=== PATIENT | female | born 1940 | race Caucasian/White ===

== ENCOUNTER 2019-04-12 16:57 | Emergency (ER) | payer OTHER ==
[2019-04-12 17:10] VITALS: TEMP 98.7; BMI 27.9
--- NOTE | 2019-04-12 17:14 | PDOC ---
History of Present Illness - General Chief Complaint: Lightheaded Stated Complaint: DIZZY Time Seen by Provider: 04/12/19 17:04 - History of Present Illness Initial Comments: 04/12/19 17:17 78yo female with hx of HTN on losartan-hctz 100-12.5mg with feeling of dizziness. States for the last few days she has taken her BP med and felt lightheaded and dizzy afterwards. States she has been outside in the heat and not drinking as much water as she should. Pt states about an hour after taking her medications she feels lightheaded - near syncope with syncope. Denies bergeron. No neck pain. No cp/sob/palpitations. No abd pain. No n/v/d. No dysuria. No rashes. Pt denies all other complaints. No vertigo sensation. PMHx: HTN PShx: amanda, appy All: nkda smokes an e-cig, quit smoking tobacco cigs 5 years ago, social etoh, no drugs Past History - Past Medical History Allergies/Adverse Reactions: Allergies Allergy/AdvReac Type Severity Reaction Status Date / Time No Known Allergies Allergy Verified 04/12/19 16:59 Home Medications: Ambulatory Orders Losartan/Hydrochlorothiazide [Losartan-Hctz 100-12.5 mg Tab] 1 each PO DAILY 02/24 Asthma: No COPD: No HTN: Yes - Surgical History Appendectomy: Yes Cholecystectomy: Yes - Suicide/Smoking/Psychosocial Hx Smoking Status: Yes Smoking History: Former smoker Years of Tobacco Use: 25 Have you smoked in the past 12 months: No Number of Cigarettes Smoked Daily: 20 If you are a former smoker, when did you quit?: 5 YEARS Information on smoking cessation initiated: No Hx Alcohol Use: Yes (SOCIAL) Drug/Substance Use Hx: No Review of Systems - Review of Systems Able to Perform ROS?: Yes Is the patient limited Palestinian proficient: No Constitutional: Yes: Other (lightheaded). No: Chills, Fever, Malaise, Weakness HEENTM: No: Nose Pain, Throat Pain Respiratory: No: Cough, Shortness of Breath, Wheezing Cardiac (ROS): Yes: Lightheadedness. No: Chest Pain, Irregular Heart Rate, Palpitations, Syncope, Chest Tightness ABD/GI: No: Diarrhea, Nausea, Vomiting, Abdominal cramping : No: Burning, Dysuria Musculoskeletal: No: Back Pain, Neck Pain Integumentary: No: Bruising, Rash Neurological: No: Headache, Numbness, Paresthesia, Tingling, Tremors, Weakness, Ataxia All Other Systems: Reviewed and Negative *Physical Exam - Vital Signs Last Vital Signs Temp Pulse Resp BP Pulse Ox 98.7 F 108 H 18 160/62 96 04/12/19 16:58 04/12/19 16:58 04/12/19 16:58 04/12/19 16:58 04/12/19 16:58 - Physical Exam General Appearance: Yes: Nourished, Appropriately Dressed. No: Apparent Distress HEENT: positive: EOMI, ELIN, Normal ENT Inspection, Normal Voice, Pharynx Normal , Other (dry mm) Neck: positive: Supple. negative: Rigid Respiratory/Chest: positive: Lungs Clear, Normal Breath Sounds. negative: Respiratory Distress Cardiovascular: positive: Regular Rhythm, S1, S2, Tachycardia. negative: Edema Gastrointestinal/Abdominal: positive: Normal Bowel Sounds, Flat, Soft. negative : Guarding, Rebound, Tenderness Musculoskeletal: positive: Normal Inspection. negative: CVA Tenderness Extremity: positive: Normal Capillary Refill, Normal Inspection, Normal Range of Motion. negative: Swelling, Calf Tenderness Integumentary: positive: Normal Color, Dry, Warm Neurologic: positive: air tool operator II-XII NML intact, Fully Oriented, Alert, Normal Mood/ Affect, Motor Strength 5/5, Other (sensation intact, ambulatory with a steady gait) Heart Score/ECG Review - ECG Intrepretation Comment:: 04/12/19 17:33 irreg at 106, pvc, st depressions laterally, with T wave ivnersions I/avl, R axis, abnl ekg ED Treatment Course - LABORATORY CBC & Chemistry Diagram: 04/12/19 17:55 04/12/19 17:55 Medical Decision Making - Medical Decision Making 04/12/19 17:21 a/p: 78yo female with lightheaded/dizzy sensation -concern for dehydration - pt has been outside in the heat and the sun for the last few days, was outside all day yesterday, states drinking water, but not enough and on HCTZ - urinates freq -pt did not take her medication today -pt denies cp/sob -no focal neuro complaints or signs/symptoms on exam -will send labs, will obtain orthostatic vs -will obtain ekg -will give 1L nss - dry mm on exam and mild tenting of skin -will monitor and reassess 04/12/19 17:48 cxr shows well circumscribed massed to R chest, will obtain ct chest and ct head this xray finding was discussed in full detail with the patient who understands need for chest ct and further imaging pt is not orthostatic 04/12/19 18:54 labs reviewed trop negative pt states feeling better and no longer lightheaded after ivf pending ct and repeat ekg 04/12/19 19:14 pt has been signed out to the oncoming ED physician pending repeat ekg and cts pt currently hemodynamically stable *DC/Admit/Observation/Transfer Diagnosis at time of Disposition: Lightheaded, Lung mass - Discharge Dispostion Condition at time of disposition: Stable - Referrals Referrals: Flores Wood MD [Primary Care Provider] - - Patient Instructions - Post Discharge Activity
[2019-04-12] MEDS ORDERED: SODIUM CHLORIDE 0.9% 1000 ML INFUS.BAG IV ONE (17:15)
[2019-04-12 17:36] VITALS: BP 123/59; PULSE 89
[2019-04-12 18:21] LABS: BASO % 0.5 % (0-2.0); EOS % 2.8 % (0-4.5); HEMATOCRIT 34.8 % (32.4-45.2); HEMOGLOBIN 11.4 GM/dl (10.7-15.3); LYMPH % 14.2 % (8-40); MCH 25.6 pg (25.7-33.7); MCHC 32.6 g/dl (32.0-36.0); MEAN CELL VOLUME 78.6 fl (80-96); MEAN PLT VOLUME 7.4 fl (7.5-11.1); MONO % 5.8 % (3.8-10.2); NEUT % 76.7 % (42.8-82.8); PLATELET COUNT 573 K/MM3 (134-434); RBC 4.44 M/mm3 (3.60-5.2); RDW 14.3 % (11.6-15.6); WHITE BLOOD COUNT 10.3 K/mm3 (4.0-10.8)
[2019-04-12 18:22] LABS: ALBUMIN 3.6 g/dl (3.4-5.0); BILIRUBIN,TOTAL 0.6 mg/dl (0.2-1); CALCIUM 9.7 mg/dl (8.5-10); CREATININE 0.9 mg/dl (0.55-1.3); MAGNESIUM 2.1 mg/dL (1.8-2.4); POTASSIUM 3.6 mmol/L (3.5-5.1); TOT PROT 7.6 g/dl (6.4-8.2)
--- NOTE | 2019-04-12 19:42 | PDOC ---
*Physical Exam - Vital Signs Last Vital Signs Temp Pulse Resp BP Pulse Ox 98.7 F 89 18 123/59 L 96 04/12/19 16:58 04/12/19 17:32 04/12/19 16:58 04/12/19 17:32 04/12/19 16:58 ED Treatment Course - LABORATORY CBC & Chemistry Diagram: 04/12/19 17:55 04/12/19 17:55 - ADDITIONAL ORDERS Additional order review: Laboratory Results 04/12/19 04/12/19 04/12/19 17:55 17:55 17:55 Sodium 136 Potassium 3.6 Chloride 99 Carbon Dioxide 27 Anion Gap 10 BUN 17.0 Creatinine 0.9 Est GFR (CKD-EPI)AfAm 71.48 Est GFR (CKD-EPI)NonAf 61.67 Random Glucose 116 H Calcium 9.7 Magnesium 2.1 Total Bilirubin 0.6 AST 13 L ALT 11 L Alkaline Phosphatase 53 Creatine Kinase 34 Troponin I < 0.03 Total Protein 7.6 Albumin 3.6 Urine Color Yellow Urine Appearance Clear Urine pH 7.0 Urine Protein Negative Urine Glucose (UA) Negative Urine Ketones Trace Urine Blood Trace-lysed Urine Nitrite Negative Urine Bilirubin Negative Urine Urobilinogen 0.2 Ur Leukocyte Esterase Trace H 04/12/19 17:55 RBC 4.44 MCV 78.6 L MCHC 32.6 RDW 14.3 MPV 7.4 L Neutrophils % 76.7 Lymphocytes % 14.2 Monocytes % 5.8 Eosinophils % 2.8 Basophils % 0.5 - Medications Given in the ED: ED Medications Discontinued Medications Generic Name Dose Route Start Last Admin Trade Name Freq PRN Reason Stop Dose Admin Sodium Chloride 1,000 ml 04/12/19 17:15 04/12/19 17:55 Normal Saline - IV 04/12/19 17:16 1,000 ml ONCE ONE Administration Progress Note - Progress Note Progress Note: Care of this patient was transferred to or from Dr. Mendez at 1900 hrs. Patient is a 78-year-old female who comes in complaining of dizziness and lightheadedness. During the course of patient's workup a chest x-ray was obtained and what appears to be a large mass on the right side was noted. Concern was for possible metastases to the brain given her lightheadedness and dizziness. Patient is getting a CT of the head and chest to further determine etiology of the probable mass as well as cause of her dizziness and lightheadedness if they are related. Patient's workup was unremarkable. On exception of a large mass visible on chest x-ray. Patient's CAT scan does show a large mass most likely neoplastic with a necrotic area of it and an air-fluid level. Patient's head CT does not show any evidence of metastatic lesions or any acute pathology. Patient's symptoms of dizziness and lightheadedness have resolved post a liter fluid Patient was informed of the results of her CAT scan and discussed with her whether she wanted to be admitted to the hospital to have it worked up here as an inpatient or whether she wanted to go and follow-up with her doctor and have worked up as an outpatient. Patient was quite clear that she did not want to be admitted and wanted to go home and have it worked up as an outpatient. Patient referred back to her primary care doctor and was discharged. Patient given copies of all of her reports and *DC/Admit/Observation/Transfer Diagnosis at time of Disposition: Lightheaded, Lung mass - Discharge Dispostion Disposition: HOME Condition at time of disposition: Stable Decision to Admit order: No - Referrals Referrals: Flores Wood MD [Primary Care Provider] - - Patient Instructions Additional Instructions: It is important that you call your doctor in the morning and get an appointment to follow-up as she will need evaluation and workup and referral for the acid in your right lung. Return to the emergency department immediately with ANY new, persistent or worsening symptoms. Continue any medications as previously prescribed by your physician. You should follow up with your primary doctor as soon as possible regarding today's emergency department visit. . Please make sure your doctor reviews the results of your emergency evaluation. Thank you for coming to the Emergency Department today for your care. It was a pleasure to see you today. Please note that your evaluation is INCOMPLETE until you follow-up with your doctor. - Post Discharge Activity
--- NOTE | 2019-04-14 13:56 | EKG ---
Test Reason : Blood Pressure : / mmHG Vent. Rate : 106 BPM Atrial Rate : 106 BPM P-R Int : 000 ms QRS Dur : 082 ms QT Int : 282 ms P-R-T Axes : 000 189 161 degrees QTc Int : 374 ms SINUS RHYTHM WITH PATs. PVC RIGHT SUPERIOR AXIS DEVIATION NONSPECIFIC ST AND T WAVE ABNORMALITY ABNORMAL ECG Confirmed by MD GIRARD MOYSES ([id number]) on 04/14/2019 1:55:43 PM Referred By: MD BELL Confirmed By:LATASHA GIRARD MD
== END 2019-04-12 20:11 | disposition home or self-care (01) ==
LOC: FER 16:57
PROC: 3E0337Z Introduction of Electrolytic and Water Balance Substance into Peripheral Vein, Percutaneous Approach (ICD-10-PCS; principal; 2019-04-12)
DX: R42 Dizziness and giddiness (principal); R91.8 Other nonspecific abnormal finding of lung field; I10 Essential (primary) hypertension; Z87.891 Personal history of nicotine dependence
CPT/HCPCS: 36415; 70450-TC; 71045-TC-FY; 71250-TC; 80053; 81003; 81015; 82550; 83735; 84484; 85025; 93005; 96360; 99283-25; J7030

== ENCOUNTER 2019-05-17 15:45 | Inpatient (IN) | payer OTHER ==
[2019-05-17] MEDS ORDERED: ASPIRIN 81 MG CHEWABLE TABLETS PO ONE (15:54)
--- NOTE | 2019-05-17 15:54 | PDOC ---
Rapid Medical Evaluation Time Seen by Provider: 05/17/19 15:46 Medical Evaluation: Allergies Allergy/AdvReac Type Severity Reaction Status Date / Time No Known Allergies Allergy Verified 04/12/19 16:59 05/17/19 15:46 I have performed a brief exam on this patient. CC: Chest pain. CALLAHAN. PE: Lungs CTAB. Irregular HR. EKG- a-fib with RVR at rate 138 Orders: cardiac w/u The patient will proceed to the ER for further evaluation. Discharge Disposition - Diagnosis Chest pain - Referrals - Patient Instructions - Post Discharge Activity
[2019-05-17 15:55] VITALS: BMI 26.6
--- NOTE | 2019-05-17 16:39 | PDOC ---
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 Pt admitted to shortness of breath, CALLAHAN. Pt reported her pain is substernal, intermittent, sharp, worse with deep inspiration and exertion, no alleviating factors, non-radiating. Pt reported she followed up with her PCP after being diagnosed with lung mass, and was referred to Dr. Bell. Pt saw Dr. Bell x1 week ago, was advised to set up outpatient biopsy. Pt has not had the opportunity to make an appointment for the biopsy yet. Past History - Past Medical History Allergies/Adverse Reactions: Allergies Allergy/AdvReac Type Severity Reaction Status Date / Time No Known Allergies Allergy Verified 05/17/19 15:55 Home Medications: Ambulatory Orders Losartan Potassium [Cozaar -] 0 mg PO DAILY 05/17/19 HTN: Yes Other medical history: LUNG MASS - Surgical History Appendectomy: Yes Cholecystectomy: Yes - Suicide/Smoking/Psychosocial Hx Smoking Status: Yes Smoking History: Current every day smoker Years of Tobacco Use: 25 Have you smoked in the past 12 months: No Number of Cigarettes Smoked Daily: 20 If you are a former smoker, when did you quit?: 5 YEARS Information on smoking cessation initiated: No Hx Alcohol Use: No Drug/Substance Use Hx: No Review of Systems - Review of Systems Able to Perform ROS?: Yes Constitutional: No: Chills, Fever HEENTM: No: Eye Pain, Throat Pain Respiratory: Yes: Shortness of Breath, SOB with Exertion, SOB at Rest Cardiac (ROS): Yes: Chest Pain, Other (Pleuritic chest pain) ABD/GI: No: Diarrhea, Nausea, Vomiting : No: Burning, Dysuria, Hematuria, Urgency Musculoskeletal: No: Back Pain, Joint Pain, Neck Pain, Joint Stiffness Integumentary: No: Lesions, Rash Neurological: No: Headache, Numbness, Seizure, Weakness, Dizziness *Physical Exam - Vital Signs Last Vital Signs Temp Pulse Resp BP Pulse Ox 97.9 F 99 H 19 122/76 93 L 05/17/19 15:52 05/17/19 15:52 05/17/19 15:52 05/17/19 15:52 05/17/19 15:52 ED Treatment Course - LABORATORY CBC & Chemistry Diagram: 05/19/19 06:40 05/19/19 06:40 Medical Decision Making - Medical Decision Making 05/17/19 16:40 78 year old female with PMH newly diagnosed lung mass presented to ED for chest pain x2 weeks worsening over 2 days associated with shortness of breath, CALLAHAN. Chart review: -CT Head Report 04/12/19: Exam Date: 04/12/19 Status: [place] [address] Unit Number: [id number] EXAM#: TYPE/ EXAM: RESULT: CT/HEAD CT WITHOUT CONTRAST Cranial CT without contrast Clinical information: headache The exam consists of contiguous direct transaxial images. Intravenous contrast was not administered. No prior imaging studies are available at this facility for direct comparison. No intraparenchymal hemorrhage is seen. There is no CT evidence of acute subarachnoid hemorrhage. No extra-axial fluid collection is noted. There is no obvious mass lesion on noncontrast imaging. No discrete infarct is identified within the limitations of CT. Involutional changes are noted with minimal ventricular dilatation. The calvarium appears intact. The partially imaged paranasal sinuses and mastoid air cells demonstrate no opacification. Impression : Negative exam. No discrete noncontrast CT pathology is identified. Reported By : Rm Lopez MD 04/12/19 1933 -CT Chest without Contrast Report 04/12/19: Exam Date: 04/12/19 Status: [place] [address] Unit Number: [id number] EXAM#: TYPE/EXAM: RESULT: CT/CHEST CT WITHOUT CONTRAST Chest CT without contrast Clinical information: chest mass, dizziness, lightheaded multiplanar imaging was performed. Intravenous contrast was not administered. An approximately 6.7 x 6.4 x 5.7 cm nonspecific mass lesion is seen within the right mid lung field which appears to straddle the horizontal fissure with central cavitation consisting of an air- fluid level. The medial border of the lesion abuts the right hilum. Evaluation for hilar lymphadenopathy is limited on noncontrast imaging. An enlarged subcarinal mediastinal lymph node is noted with a 1.5 cm short axis diameter. Several nonspecific mildly prominent pretracheal mediastinal lymph nodes are seen with a 1 cm short axis diameter. No infiltrate or pleural effusion is identified. There is no definite cardiac enlargement. A very small amount of pericardial fluid is seen which is probably physiologic in volume. There is no aortic aneurysm. The trachea and central bronchi demonstrate no obvious abnormality. A small elliptical shape sclerotic focus is seen within a left mid chest rib laterally probably representing an incidental bone island. Impression: An irregular solitary nonspecific cavitating approximately 6.7 x 6.4 x 5.7 cm right mid lung field mass lesion is noted probably on the basis of neoplastic disease. Nonspecific mediastinal lymphadenopathy is noted. Reported By: Rm Lopez MD 04/12/191946 Initial Vital Signs Temp Pulse Resp BP Pulse Ox 97.9 F 99 H 19 122/76 93 L 05/17/19 15:52 05/17/19 15:52 05/17/19 15:52 05/17/19 15:52 05/17/19 15:52 Afebrile. Borderline tachycardia. No tachypnea. No hypotension. Mild hypoxia on room air. Labs ordered: CBC, CMP, cardiac profile, mag Imaging ordered: CXR Medications ordered: ASA 162 mg PO chew once, diltiazem 10 mg IV once EKG performed at 1546: rate 139, irregularly irregular rhythm, left axis, no acute ST changes. New onset atrial fibrillation. Pt is high risk for PE - malignancy with chest pain, shortness of breath, tachycardia and hypoxia I discussed the need for CTA to rule out PE with the patient, she agreed with plan for care. 05/17/19 17:44 Pt reassessed, reported chest heaviness still present. HR [address] 05/17/19 18:25 Pt transported back to ED. 05/17/19 18:53 Vital Signs Temperature 97.9 F 05/17/19 15:52 Pulse Rate 82 05/17/19 18:52 Respiratory Rate 18 05/17/19 18:52 Blood Pressure 113/66 05/17/19 18:52 O2 Sat by Pulse Oximetry (%) 93 L 05/17/19 18:52 Tachycardia improved. No tachypnea. No hypotension. Mild hypoxia on room air. Official CTA report: Exam Date: 05/17/19 Status: [facility] Unit Number: [id number] EXAM#: TYPE/EXAM: RESULT: [id number] CT/CHEST CTA HISTORY PROVIDED: Rule out PE. TECHNIQUE: Sequential axial images were obtained from the thoracic inlet through the domes of the diaphragm following the administration of intravenous contrast material. CTA pulmonary embolism protocol was utilized, including coronal and oblique coronal MIP images. There is adequate opacification of the central pulmonary vasculature with no filling defects suspicious for pulmonary embolism. Evaluation of the lung snowden demonstrates a large right upper lobe mass measuring approximately 8.6 x 6.4 x 7.1 cm. The mass has significantly increased in size since a prior study of 04/12/2019 and is consistent with a malignancy. Right hilar, pretracheal and subcarinal lymphadenopathy is noted. The heart is not enlarged. There is no evidence of thoracic aortic aneurysm or dissection. Evaluation of the upper abdomen demonstrates no acute abnormalities. IMPRESSION: 1. No evidence of pulmonary embolism. 2. Large right upper lobe mass consistent with malignancy and increased in size since 2018. 3. Right hilar and mediastinal lymphadenopathy. Please see above discussion. Reported By: Yousuf Knight MD 05/17/19 5035 Results explained to patient and pt was advised to be admitted for new-onset atrial fibrillation. Pt agreed with plan for care. 05/17/19 19:25 CBC WBC 10.3 K/mm3 (4.0-10.0) H 05/17/19 17:00 RBC 4.61 M/mm3 (3.60-5.2) 05/17/19 17:00 Hgb 11.4 GM/dL (10.7-15.3) 05/17/19 17:00 Hct 35.4 % (32.4-45.2) 05/17/19 17:00 MCV 76.7 fl (80-96) L 05/17/19 17:00 MCH 24.8 pg (25.7-33.7) L 05/17/19 17:00 MCHC 32.4 g/dl (32.0-36.0) 05/17/19 17:00 RDW 15.6 % (11.6-15.6) 05/17/19 17:00 Plt Count 569 K/MM3 (134-434) H 05/17/19 17:00 MPV 7.2 fl (7.5-11.1) L 05/17/19 17:00 Absolute Neuts (auto) 8.0 K/mm3 (1.5-8.0) 05/17/19 17:00 Neutrophils % 77.5 % (42.8-82.8) 05/17/19 17:00 Lymphocytes % 13.5 % (8-40) 05/17/19 17:00 Monocytes % 6.8 % (3.8-10.2) 05/17/19 17:00 Eosinophils % 1.4 % (0-4.5) 05/17/19 17:00 Basophils % 0.8 % (0-2.0) 05/17/19 17:00 Nucleated RBC % 0 % (0-0) 05/17/19 17:00 Leukocytosis without left shift. No anemia. Thrombocytosis. Dr. Nina noriega. Pt to be admitted to [facility] for new onset atrial fibrillation, chest pain, lung mass. 05/17/19 19:34 EKG performed at 1911: rate 83, regular rhythm, PAC, flipped T in V2, flat T in III, otherwise no acute ST changes. 05/17/19 19:57 Dr. Nina noriega again. 05/17/19 20:[address] Wood, she agrees with plan for admission and cardiology consult, she requests Dr. Ames consult be placed to see her in the AM. *DC/Admit/Observation/Transfer Diagnosis at time of Disposition: Chest pain, New onset atrial fibrillation - Discharge Dispostion Condition at time of disposition: Stable Decision to Admit order: Yes - Referrals - Patient Instructions - Post Discharge Activity
[2019-05-17] MEDS ORDERED: ASPIRIN 81 MG CHEWABLE TABLETS ONE ×2 (16:46→16:53)
[2019-05-17] MEDS ORDERED: dilTIAZem HCL 50 MG/10 ML - 10 ML VIAL IVPUSH ONE (17:01)
[2019-05-17 17:19] LABS: BASO % 0.8 % (0-2.0); EOS % 1.4 % (0-4.5); HEMATOCRIT 35.4 % (32.4-45.2); HEMOGLOBIN 11.4 GM/dL (10.7-15.3); LYMPH % 13.5 % (8-40); MCH 24.8 pg (25.7-33.7); MCHC 32.4 g/dl (32.0-36.0); MEAN CELL VOLUME 76.7 fl (80-96); MEAN PLT VOLUME 7.2 fl (7.5-11.1); MONO % 6.8 % (3.8-10.2); NEUT % 77.5 % (42.8-82.8); PLATELET COUNT 569 K/MM3 (134-434); RBC 4.61 M/mm3 (3.60-5.2); RDW 15.6 % (11.6-15.6); WHITE BLOOD COUNT 10.3 K/mm3 (4.0-10.0)
[2019-05-17] MEDS ORDERED: dilTIAZem HCL 125 MG/25 ML - 25 ML VIAL ONE ×2 (17:27)
[2019-05-17 17:41] LABS: ALBUMIN 3.1 g/dl (3.4-5.0); ALK PHOS 58 U/L (45-117); ANION GAP 11 MMOL/L (8-16); BILIRUBIN,TOTAL 0.4 mg/dL (0.2-1); BLOOD UREA NITROGEN 11.8 mg/dL (7-18); CALCIUM 9.7 mg/dL (8.5-10.1); CHLORIDE 104 mmol/L (98-107); CO2 23 mmol/L (21-32); CREATININE 0.8 mg/dL (0.55-1.3); GLUCOSE,RANDOM 134 mg/dL (74-106); POTASSIUM 3.9 mmol/L (3.5-5.1); SGOT/AST 11 U/L (15-37); SGPT/ALT 15 U/L (13-61); SODIUM 138 mmol/L (136-145); TOT PROT 7.3 g/dl (6.4-8.2)
[2019-05-17 17:45] LABS: INR 1.28 (0.83-1.09); PROTHROMBIN TIME (PATIENT) 15.1 SEC (9.7-13.0)
--- NOTE | 2019-05-17 18:40 | PDOC ---
Documentation entered by Keara Christine SCRIBE, acting as scribe for Genna Trujillo MD. Genna Trujillo MD: This documentation has been prepared by the Emmett sotomayor Mackenzie, SCRIBE, under my direction and personally reviewed by me in its entirety. I confirm that the documentation accurately reflects all work , treatment, procedures, and medical decision making performed by me. Attending Attestation - Resident Resident Name: Amber Mariano - ED Attending Attestation I have performed the following: I have examined & evaluated the patient, The case was reviewed & discussed with the resident, I agree w/resident's findings & plan - HPI HPI: The patient is a 78 year old female, with a significant PMH of HTN and a recently diagnosed right lung mass (diagnosed 04/12/19, biopsy has not been done yet) who presents to the emergency department with new onset Afib, chest pain, and shortness of breath. Patient states her symptoms have persisted over the past 2 weeks and for the past two days her symptoms have worsened prompting her to come in to the ED today. The patient denies headache and dizziness. Denies fever, chills, nausea, vomiting, diarrhea and constipation. Denies dysuria, frequency, urgency and hematuria. Allergies: NKDA Past surgical history: filippo santoyo Social history: Quit smoking cigarettes 5 years ago, now uses an e-cigarette PCP: Dr. Diaz 05/17/19 17:40 - Physicial Exam PE: GENERAL: The patient is in no acute distress. ENT: Ears normal, nares patent, oropharynx clear without exudates. Moist mucous membranes. NECK: Normal range of motion, supple LUNGS: Breath sounds equal, clear to auscultation bilaterally. No wheezes, and no crackles. HEART: Irregularly irregular, no murmurs ABDOMEN: Soft, nontender, normoactive bowel sounds. EXTREMITIES: Normal range of motion, no edema. NEUROLOGICAL: Cranial nerves II through XII grossly intact. Normal speech. No focal neurological deficits. SKIN: Warm, Dry, normal turgor, no rashes or lesions noted. 05/17/19 17:40 05/17/19 18:40 - Critical Care Time Total Critical Care Time: 35 Critical Care Statement: The care of this patient involved high complexity decision making to prevent further life threatening deterioration of the patient 's condition and/or to evaluate & treat vital organ system(s) failure or risk of failure. - Medical Decision Making 05/17/19 18:35 Ms. yao is a 78 yo F who presents to the ER with a complaint of chest pain which has been present for the past 2 weeks, worsening over the past 2 days. Recently diagnosed with a right midlung mass 6 x 6 x 4 (pending further work up) (+) SOB, (+) CALLAHAN, Pain is pleuritic, intermittent, sharp, no alleviating factors DD: PE, effect of lung mass, pleural effusion Will do: Labs CTA Re Assess Laboratory Tests 05/17/19 05/17/19 17:00 17:00 INR 1.28 H BUN 11.8 Creatinine 0.8 Creatine Kinase 29 Troponin I < 0.02 05/17/19 18:36 05/17/19 18:38 05/17/19 19:19 CTA: no pe, right middle lobe mass has increased in size Awaiting CBC Will admit 05/17/19 19:37 Repeat EKG: NSR rate of 83 bpm, axis nml, intervals nml, no st elevation, t wave inversion v2 05/17/19 19:38 Laboratory Tests 05/17/19 05/17/19 17:00 17:00 WBC 10.3 H Hgb 11.4 Hct 35.4 Plt Count 569 H INR 1.28 H in light of increased size of mass and pt chest pain, will admit HR improved after Cardizem (then pt converted to SR) Will need cards consultation Clinical impression: chest pain, initial presentation lung mass, repeat presentation 05/18/19 19:07
[2019-05-17] MEDS ORDERED: ACETAMINOPHEN 325 MG TABLET (FP) PO PRN (20:57)
[2019-05-17] MEDS ORDERED: APIXABAN 5 MG TABLET PO ONE (21:43)
[2019-05-17] MEDS ORDERED: ATORVASTATIN CA 40 MG TABLET (FP) ONE (21:43)
[2019-05-17] MEDS: APIXABAN 5 MG TABLET PO SCH (22:06)
[2019-05-17] MEDS: ATORVASTATIN CA 40 MG TABLET (FP) PO SCH (22:06)
[2019-05-18 07:05] LABS: ALBUMIN 2.9 g/dl (3.4-5.0); ALK PHOS 51 U/L (45-117); ANION GAP 7 MMOL/L (8-16); BILIRUBIN,TOTAL 0.4 mg/dL (0.2-1); BLOOD UREA NITROGEN 11.4 mg/dL (7-18); CALCIUM 9.4 mg/dL (8.5-10.1); CHLORIDE 106 mmol/L (98-107); CHOLESTEROL 170 mg/dL (50-200); CO2 26 mmol/L (21-32); CREATININE 0.7 mg/dL (0.55-1.3); GLUCOSE,RANDOM 94 mg/dL (74-106); HDL CHOLESTEROL 37 mg/dL (40-60); MAGNESIUM 2.3 mg/dL (1.8-2.4); PHOSPHOROUS 3.4 mg/dL (2.5-4.9); POTASSIUM 4.3 mmol/L (3.5-5.1); SGOT/AST 12 U/L (15-37); SGPT/ALT 14 U/L (13-61); SODIUM 139 mmol/L (136-145); TOT PROT 6.8 g/dl (6.4-8.2); TRIGLYCERIDES 78 mg/dL (0-150)
[2019-05-18 07:15] LABS: BASO % 0.6 % (0-2.0); EOS % 3.2 % (0-4.5); HEMATOCRIT 30.8 % (32.4-45.2); HEMOGLOBIN 10.3 GM/dL (10.7-15.3); LYMPH % 15.2 % (8-40); MCH 25.3 pg (25.7-33.7); MCHC 33.3 g/dl (32.0-36.0); MEAN CELL VOLUME 75.9 fl (80-96); MONO % 7.7 % (3.8-10.2); NEUT % 73.3 % (42.8-82.8); PLATELET COUNT 522 K/MM3 (134-434); RBC 4.06 M/mm3 (3.60-5.2); RDW 15.9 % (11.6-15.6); WHITE BLOOD COUNT 8.7 K/mm3 (4.0-10.0)
--- NOTE | 2019-05-18 08:35 | CON.CARD ---
Consult Consult Specialty:: Cardiology Referred by:: Dr. Wood Reason for Consultation:: AF - History of Present Illness Chief Complaint: Dizziness History of Present Illness: 78F Former smoker w/ HTN and newly diagnosed RUL mass presents to ER w/ one week of dizziness and presyncope sensations, feeling of chest heaviness. CTA negative for PE, RUL mass increasing in size. Also in new onset AF. She denies prior hx AK, cor revasc No prior AF. Denies palpitations. Chronic CALLAHAN. No syncope. No edema, no PND/ orthopnea. AF initially RVR, improved w/ Cardizem 10mg IV x1. 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, CVA, Dementia, Migraine, Multiple Sclerosis, Peripheral Neuropathy, Parkinson's, Seizure, Syncope, TIA, Vertigo, Other Cardio/Vascular: Yes: HTN Pulmonary: Yes: COPD Gastrointestinal: No: Ascites, Cancer, Constipation, Crohn's Disease, Diverticulitis, Diverticulosis, Esophageal Varices, Gastritis, GERD, GI Bleed, Hemorrhoids, Hiatal Hernia, Inflamatory Bowel Disease, Irritable Bowel Disease, Pancreatitis, Peptic Ulcer Disease, Ulcerative Colitis, Other Hepatobiliary: No: Cirrhosis, Cholelithiasis, Cholecystitis, Choledocholithiasis , Hepatitis A, Hepatitis B, Hepatitis C, Other Renal/: No: Renal Failure, Renal Inusuff, BPH, Cancer, Hematuria, Hemodialysis , Neurogenic Bladder, Renal Calculi, UTI, Other Reproductive: No: Ectopic , Endometriosis, Fibroids, PID, Polycystic Ovary Syndrome, Postmenopausal, Other Heme/Onc: Yes: Other (RUL MASS) Infectious Disease: No: AIDS, C-Diff, Herpes Zoster, HIV, MRSA, STD's, Tuberculosis, VREF, Other Psych: No: Addictions, Anxiety, Bipolar, Depression, Panic, Psychosis, Schizophrenia, Other Musculoskeletal: No: Bursitis, Chronic low back pain, Hemiparesis, Hemiplegia, Osteoarthritis, Paraplegia, Other Rheumatology: No: Fibromyalgia, Gout, Lupus, Rheumatoid Arthritis, Sarcoidosis, Vasculitis, Other ENT: No: Allergic Rhinitis, Sinusitis, Other Endocrine: No: Jennings's Disease, [place]ub[place]'s Disease, Diabetes Insipidus, Diabetes Mellitus, Hyperparathyroidism, Hyperthyroidism, Hypothyroidism, Osteopenia, SIADH, Other - Past Surgical History Past Surgical History: Yes: Cholecystectomy - Alcohol/Substance Use Hx Alcohol Use: No - Smoking History Smoking history: Current every day smoker Have you smoked in the past 12 months: No Aproximately how many cigarettes per day: 20 If you are a former smoker, when did you quit?: 5 YEARS - Social History Usual Living Arrangement: With Child History of Recent Travel: No Home Medications - Allergies Allergies/Adverse Reactions: Allergies Allergy/AdvReac Type Severity Reaction Status Date / Time No Known Allergies Allergy Verified 05/17/19 15:55 - Home Medications Home Medications: Ambulatory Orders Losartan Potassium [Cozaar -] 0 mg PO DAILY 05/17/19 Family Disease History - Family Disease History Family History: Unremarkable (No early CAD) Review of Systems - Review of Systems Constitutional: reports: No Symptoms Eyes: reports: No Symptoms HENT: reports: No Symptoms Neck: reports: No Symptoms Cardiovascular: reports: Chest Pain, Other (near syncope and dizziness) Respiratory: reports: SOB on Exertion Gastrointestinal: reports: No Symptoms Genitourinary: reports: No Symptoms Breasts: reports: No Symptoms Reported Musculoskeletal: reports: No Symptoms Integumentary: reports: No Symptoms Neurological: reports: No Symptoms Endocrine: reports: No Symptoms Hematology/Lymphatic: reports: No Symptoms Psychiatric: reports: No Symptoms - Risk Factors Known Risk Factors: Yes: Hypertension, Smoking Vital Signs: Vital Signs Temperature 98.3 F 05/18/19 07:20 Pulse Rate 75 05/18/19 07:20 Respiratory Rate 20 05/18/19 07:20 Blood Pressure 114/79 05/18/19 07:20 O2 Sat by Pulse Oximetry (%) 95 05/18/19 07:20 Constitutional: Yes: No Distress, Calm Eyes: Yes: Conjunctiva Clear, EOM Intact HENT: Yes: Atraumatic, Normocephalic Neck: Yes: Trachea Midline Respiratory: Yes: Other (decreased breath sounds b/l, no rales or active wheezing) Gastrointestinal: Yes: WNL Renal/: Yes: WNL Cardiovascular: Yes: WNL JVD: No Carotid Bruit: No PMI: Non-Displaced Heart Sounds: Yes: S1, S2 (irreg, irreg) Murmur: No: Systolic Murmur, Diastolic Murmur, Grade 1, Grade 2, Grade 3, Grade 4, Grade 5, Grade 6 Musculoskeletal: No: WNL, Back Pain, Joint Stiffness, Joint Swelling, Muscle Pain, Muscle Weakness, Other Extremities: No: WNL, Amputation, Calf Tenderness, Cold, Cool, Cyanosis, Deformity, Delayed Capillary Refill, Erythema, External Rotation, Internal Rotation, Pallor, Shortened, Other Edema: No Peripheral Pulses WNL: Yes Integumentary: Yes: WNL Neurological: Yes: WNL ...Motor Strength: WNL - Other Data Labs, Other Data: CBC, BMP 05/18/19 06:18 05/18/19 06:18 INR, PTT INR 1.28 (0.83-1.09) H 05/17/19 17:00 Troponin, BNP 05/17/19 05/17/19 05/18/19 17:00 17:35 06:18 Troponin I < 0.02 < 0.02 < 0.02 Troponin, BNP 05/17/19 05/17/19 05/18/19 17:00 17:35 06:18 Troponin I < 0.02 < 0.02 < 0.02 Laboratory Tests 05/17/19 05/17/19 05/17/19 17:00 17:00 17:35 WBC Hgb Plt Count INR 1.28 H Sodium Potassium BUN Creatinine Magnesium AST ALT Alkaline Phosphatase Creatine Kinase Troponin I < 0.02 < 0.02 05/18/19 05/18/19 06:18 06:18 WBC 8.7 Hgb 10.3 L Plt Count 522 H INR Sodium 139 Potassium 4.3 BUN 11.4 Creatinine 0.7 Magnesium 2.3 AST 12 L ALT 14 Alkaline Phosphatase 51 Creatine Kinase 26 Troponin I < 0.02 AF, NSST Echo: Pending Imaging - Results Chest X-ray: Image Reviewed Cat Scan: Image Reviewed (LArge RUL mass, increased in size from prior/ no PE) EKG: Image Reviewed Assessment/Plan IMP: 1. New onset AF w/ RVR now controlled. 2. Chronic HTN 3. Suspected COPD 4. RUL Mass, likely malignant 5. Dizziness, chest pain likely all secondary to AF w/ RVR: CTA negative for PE REC: 1. Tele 2. Start Cardizem CD, responded well to Cardizem and probably better choice (vs beta blockers given her COPD) 3. Echo for EF assessment; Check TSH; consider ischemic work up in light of several risk factors. 4. [id number] score= 4, merits AC. Started on Eliquis. 5. Further plans re work up of lung mass as per PMD and Pulmonary.
[2019-05-18] MEDS ORDERED: LOSARTAN POTASSIUM 50 MG TABLET (FP) PO SCH (10:00)
[2019-05-18] MEDS ORDERED: dilTIAZem HCL 60 MG TABLET (FP) ONE (11:11)
[2019-05-18] MEDS ORDERED: APIXABAN 5 MG TABLET PO ONE (11:11)
[2019-05-18] MEDS ORDERED: ASPIRIN COATED 81 MG TABLET.EC ONE (11:11)
[2019-05-18] MEDS ORDERED: LOSARTAN POTASSIUM 50 MG TABLET (FP) ONE (11:12)
[2019-05-18] MEDS: ASPIRIN COATED 81 MG TABLET.EC PO SCH (11:22)
[2019-05-18] MEDS: LOSARTAN POTASSIUM 25 MG TABLET PO SCH (11:22)
[2019-05-18] MEDS: POLYETHYLENE GLYCOL 3350 119 GM BTL PO SCH (11:22)
[2019-05-18] MEDS: APIXABAN 5 MG TABLET PO SCH ×2 (11:22→22:50)
--- NOTE | 2019-05-18 12:45 | CON.PULM ---
Consult Consult Specialty:: PULMONARY Referred by:: Dr Wood Reason for Consultation:: lung mass - History of Present Illness Chief Complaint: chest heaviness History of Present Illness: 78yo female with h/o HTN, former long time smoker who was admitted with chest heaviness. Found to be in new onset atrial fibrillation. States she was told of a lung mass in April and was being worked up as an outpt. She denies any cough, hemoptysis or shortness of breath. No fevers, chills or sweats. No unintentional weight loss. She quit smoking 5 years ago, started around age 21, smoked on average 2 PPD. Had 2 sisters from lung cancer. - History Source History Provided By: Patient, Medical Record Limitations to Obtaining History: No Limitations - Past Medical History Cardio/Vascular: Yes: HTN Pulmonary: Yes: COPD - Past Surgical History Past Surgical History: Yes: Cholecystectomy - Alcohol/Substance Use Hx Alcohol Use: No - Smoking History Smoking history: Current every day smoker Have you smoked in the past 12 months: No Aproximately how many cigarettes per day: 20 If you are a former smoker, when did you quit?: 5 YEARS - Social History Usual Living Arrangement: With Child History of Recent Travel: No Home Medications - Allergies Allergies/Adverse Reactions: Allergies Allergy/AdvReac Type Severity Reaction Status Date / Time No Known Allergies Allergy Verified 05/17/19 15:55 - Home Medications Home Medications: Ambulatory Orders Losartan Potassium [Cozaar -] 0 mg PO DAILY 05/17/19 Review of Systems - Review of Systems Constitutional: reports: Weakness. denies: Chills, Fever Eyes: denies: Recent Change in Vision HENT: denies: Nasal Congestion, Throat Pain Neck: denies: Stiffness, Tenderness Cardiovascular: reports: Chest Pain. denies: Edema, Shortness of Breath Respiratory: denies: Cough, Hemoptysis, Wheezing Gastrointestinal: denies: Abdominal Pain, Nausea, Vomiting Genitourinary: denies: Dysuria, Hematuria Neurological: denies: Dizziness, Headache Endocrine: denies: Unexplained Weight Loss Physical Exam Vital Sings: Vital Signs Temperature 98.3 F 05/18/19 07:20 Pulse Rate 75 05/18/19 07:20 Respiratory Rate 20 05/18/19 07:20 Blood Pressure 114/79 05/18/19 07:20 O2 Sat by Pulse Oximetry (%) 95 05/18/19 07:20 Constitutional: Yes: Calm Eyes: Yes: Conjunctiva Clear, EOM Intact HENT: Yes: Atraumatic, Normocephalic Neck: Yes: Supple, Trachea Midline Cardiovascular: Yes: Regular Rate and Rhythm Respiratory: Yes: Diminished (decreased breath sounds at the bases) ...Clubbing: No Gastrointestinal: Yes: Normal Bowel Sounds, Soft. No: Tenderness Edema: No Neurological: Yes: Alert, Oriented Labs: CBC, BMP 05/18/19 06:18 05/18/19 06:18 Imaging - Results Chest X-ray: Report Reviewed, Image Reviewed (RUL mass) Problem List - Problems (1) New onset atrial fibrillation Code(s): I48.91 - UNSPECIFIED ATRIAL FIBRILLATION (2) Lung mass Code(s): R91.8 - OTHER NONSPECIFIC ABNORMAL FINDING OF LUNG FIELD Assessment/Plan New Onset Atrial Fibrillation RUL Mass likely malignant HTN - rate control - on anticoagulation - will need biopsy via IR vs bronchoscopy but will need to be off ASA and anticoagulation - outpt PET, PFTs Thank you for this consult Pop Kent MD
--- NOTE | 2019-05-18 14:57 | HP ---
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 No: AFIB Pulmonary: Yes: COPD, Other (known to have lung mass) Gastrointestinal: No: Ascites, Cancer, Constipation, Crohn's Disease, Diverticulitis, Diverticulosis, Esophageal Varices, Gastritis, GERD, GI Bleed, Hemorrhoids, Hiatal Hernia, Inflamatory Bowel Disease, Irritable Bowel Disease, Pancreatitis, Peptic Ulcer Disease, Ulcerative Colitis, Other Hepatobiliary: No: Cirrhosis, Cholelithiasis, Cholecystitis, Choledocholithiasis , Hepatitis A, Hepatitis B, Hepatitis C, Other Renal/: No: Renal Failure, Renal Inusuff, BPH, Cancer, Hematuria, Hemodialysis , Neurogenic Bladder, Renal Calculi, UTI, Other Heme/Onc: Yes: Other (RUL MASS) Infectious Disease: No: AIDS, C-Diff, Herpes Zoster, HIV, MRSA, STD's, Tuberculosis, VREF, Other Psych: No: Addictions, Anxiety, Bipolar, Depression, Panic, Psychosis, Schizophrenia, Other Musculoskeletal: No: Bursitis, Chronic low back pain, Hemiparesis, Hemiplegia, Osteoarthritis, Paraplegia, Other Rheumatology: No: Fibromyalgia, Gout, Lupus, Rheumatoid Arthritis, Sarcoidosis, Vasculitis, Other ENT: No: Allergic Rhinitis, Sinusitis, Other Endocrine: No: [place]'s Disease, Florence's Disease, Diabetes Insipidus, Diabetes Mellitus, Hyperparathyroidism, Hyperthyroidism, Hypothyroidism, Osteopenia, SIADH, Other - Past Surgical History Past Surgical History: Yes: Cholecystectomy - Smoking History Smoking history: Former smoker Have you smoked in the past 12 months: No Aproximately how many cigarettes per day: 20 If you are a former smoker, when did you quit?: 5 YEARS - Alcohol/Substance Use Hx Alcohol Use: No - Social History Usual Living Arrangement: Yes: Alone ADL: Independent History of Recent Travel: No Home Medications - Allergies Allergies/Adverse Reactions: Allergies Allergy/AdvReac Type Severity Reaction Status Date / Time No Known Allergies Allergy Verified 05/17/19 15:55 - Home Medications Home Medications: Ambulatory Orders Losartan Potassium [Cozaar -] 0 mg PO DAILY 05/17/19 Review of Systems - Review of Systems Constitutional: reports: Weakness Eyes: reports: No Symptoms HENT: reports: No Symptoms Neck: reports: No Symptoms Cardiovascular: reports: Chest Pain, Palpitations, Shortness of Breath Respiratory: reports: Cough, SOB, SOB on Exertion Gastrointestinal: reports: No Symptoms Genitourinary: reports: No Symptoms Breasts: reports: No Symptoms Reported Musculoskeletal: reports: No Symptoms Integumentary: reports: No Symptoms Neurological: reports: Dizziness, Weakness, Other (dizzines and weakness occur randomly and subside without treatment was seen at [facility] ED last month for similar events - all work up at that time was negative -- and was released home) Endocrine: reports: No Symptoms Hematology/Lymphatic: reports: No Symptoms Psychiatric: reports: No Symptoms Physical Examination Vital Signs: Vital Signs Temperature 98.3 F 05/18/19 07:20 Pulse Rate 75 05/18/19 07:20 Respiratory Rate 20 05/18/19 07:20 Blood Pressure 114/79 05/18/19 07:20 O2 Sat by Pulse Oximetry (%) 95 05/18/19 07:20 Constitutional: Yes: Well Nourished, No Distress, Calm Eyes: Yes: WNL HENT: Yes: WNL, Atraumatic, Normocephalic Neck: Yes: WNL, Supple, Trachea Midline Cardiovascular: Yes: Pulse Irregular (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 No: Rales, Rhonchi, Wheezes Gastrointestinal: Yes: WNL, Normal Bowel Sounds ...Rectal Exam: Yes: Deferred Renal/: Yes: WNL Breast(s): Yes: WNL Musculoskeletal: Yes: WNL Extremities: Yes: WNL Edema: No Peripheral Pulses WNL: Yes Integumentary: Yes: WNL Neurological: Yes: WNL ...Motor Strength: WNL Psychiatric: Yes: Alert, Oriented Labs: CBC, BMP 05/18/19 06:18 05/18/19 06:18 Problem List - Problems (1) COPD (chronic obstructive pulmonary disease) Code(s): J44.9 - CHRONIC OBSTRUCTIVE PULMONARY DISEASE, UNSPECIFIED (2) Chest pain Code(s): R07.9 - CHEST PAIN, UNSPECIFIED (3) New onset atrial fibrillation Code(s): I48.91 - UNSPECIFIED ATRIAL FIBRILLATION (4) Lightheaded Code(s): R42 - DIZZINESS AND GIDDINESS (5) Lung mass Code(s): R91.8 - OTHER NONSPECIFIC ABNORMAL FINDING OF LUNG FIELD
--- NOTE | 2019-05-18 15:17 | EKG ---
Test Reason : Blood Pressure : / mmHG Vent. Rate : 074 BPM Atrial Rate : 061 BPM P-R Int : 128 ms QRS Dur : 084 ms QT Int : 360 ms P-R-T Axes : 000 -02 026 degrees QTc Int : 399 ms SINUS RHYTHM WITH PREMATURE ATRIAL COMPLEXES OTHERWISE NORMAL ECG WHEN COMPARED WITH ECG OF 17-MAY-2019 22:00, NO SIGNIFICANT CHANGE WAS FOUND Confirmed by MD Juan F, Liam ([id number]) on 05/18/2019 3:16:47 PM Referred By: Prabhakar DAWN Confirmed By:Liam Rogel MD
--- NOTE | 2019-05-18 15:18 | EKG ---
Test Reason : Blood Pressure : / mmHG Vent. Rate : 079 BPM Atrial Rate : 079 BPM P-R Int : 118 ms QRS Dur : 078 ms QT Int : 338 ms P-R-T Axes : 030 -10 018 degrees QTc Int : 387 ms SINUS RHYTHM WITH PREMATURE ATRIAL COMPLEXES NONSPECIFIC ST ABNORMALITY ABNORMAL ECG WHEN COMPARED WITH ECG OF 17-MAY-2019 19:11, NO SIGNIFICANT CHANGE WAS FOUND Confirmed by MD Juan F, Liam ([id number]) on 05/18/2019 3:18:17 PM Referred By: Confirmed By:Liam Rogel MD
--- NOTE | 2019-05-18 15:19 | EKG ---
Test Reason : Blood Pressure : / mmHG Vent. Rate : 139 BPM Atrial Rate : 166 BPM P-R Int : 000 ms QRS Dur : 072 ms QT Int : 288 ms P-R-T Axes : 000 000 -52 degrees QTc Int : 438 ms ATRIAL FIBRILLATION WITH RAPID VENTRICULAR RESPONSE LOW VOLTAGE QRS NONSPECIFIC ST ABNORMALITY ABNORMAL ECG WHEN COMPARED WITH ECG OF 12-APR-2019 17:23, PREVIOUS ECG HAS UNDETERMINED RHYTHM, NEEDS REVIEW QRS AXIS SHIFTED RIGHT ST MORE DEPRESSED LATERAL LEADS T WAVE INVERSION NO LONGER EVIDENT IN LATERAL LEADS Confirmed by MD Juan F, Liam ([id number]) on 05/18/2019 3:19:33 PM Referred By: Confirmed By:Liam Rogel MD
[2019-05-18] MEDS: ATORVASTATIN CA 40 MG TABLET (FP) PO SCH (22:50)
[2019-05-18] MEDS ORDERED: LORazepam 0.5 MG TABLET PO PRN (23:15)
[2019-05-19 08:13] LABS: BASO % 0.5 % (0-2.0); EOS % 3.9 % (0-4.5); HEMATOCRIT 30.8 % (32.4-45.2); HEMOGLOBIN 10.1 GM/dL (10.7-15.3); LYMPH % 15.2 % (8-40); MCH 24.9 pg (25.7-33.7); MCHC 32.9 g/dl (32.0-36.0); MEAN CELL VOLUME 75.7 fl (80-96); MONO % 7.1 % (3.8-10.2); NEUT % 73.3 % (42.8-82.8); PLATELET COUNT 552 K/MM3 (134-434); RBC 4.07 M/mm3 (3.60-5.2); WHITE BLOOD COUNT 7.6 K/mm3 (4.0-10.0)
[2019-05-19 08:36] LABS: BLOOD UREA NITROGEN 14.1 mg/dL (7-18); CALCIUM 9.3 mg/dL (8.5-10.1); CREATININE 0.7 mg/dL (0.55-1.3); POTASSIUM 4.4 mmol/L (3.5-5.1)
[2019-05-19] MEDS: APIXABAN 5 MG TABLET PO SCH ×2 (09:48→21:40)
[2019-05-19] MEDS: ASPIRIN COATED 81 MG TABLET.EC PO SCH (09:48)
[2019-05-19] MEDS: LOSARTAN POTASSIUM 25 MG TABLET PO SCH (09:48)
[2019-05-19] MEDS: POLYETHYLENE GLYCOL 3350 119 GM BTL PO SCH (09:50)
--- NOTE | 2019-05-19 09:53 | PN ---
Progress Note, Physician Chief Complaint: no CP or SOB TELE: NSR today BP also lowish History of Present Illness: new onset AF - Current Medication List Current Medications: Active Medications Acetaminophen (Tylenol -) 650 mg PO Q6H PRN PRN Reason: PAIN LEVEL 1-5 Apixaban (Eliquis -) 5 mg PO BID [facility] Last Admin: 05/19/19 09:48 Dose: 5 mg Aspirin (Ecotrin -) 81 mg PO DAILY [facility] Last Admin: 05/19/19 09:48 Dose: 81 mg Atorvastatin Calcium (Lipitor -) 40 mg PO HS [facility] Last Admin: 05/18/19 22:50 Dose: 40 mg Diltiazem HCl (Cardizem Cd -) 120 mg PO DAILY [facility] Last Admin: 05/19/19 09:48 Dose: 120 mg Lorazepam (Ativan -) 0.5 mg PO HS PRN PRN Reason: INSOMNIA Losartan Potassium (Cozaar -) 25 mg PO DAILY [facility] Last Admin: 05/19/19 09:48 Dose: 25 mg Polyethylene Glycol (Miralax (For Daily Use) -) 17 gm PO DAILY [facility] Last Admin: 05/19/19 09:50 Dose: 17 gm - Objective Vital Signs: Vital Signs Temperature 98.2 F 05/19/19 06:00 Pulse Rate 83 05/19/19 06:00 Respiratory Rate 16 05/19/19 06:00 Blood Pressure 106/54 L 05/19/19 06:00 O2 Sat by Pulse Oximetry (%) 96 05/18/19 22:00 Constitutional: Yes: No Distress Eyes: Yes: Conjunctiva Clear Cardiovascular: Yes: Pulse Irregular Respiratory: Yes: CTA Bilaterally Gastrointestinal: Yes: Soft Edema: No Peripheral Pulses WNL: Yes Neurological: Yes: Alert, Oriented ...Motor Strength: WNL Labs: CBC, BMP 05/19/19 06:40 05/19/19 06:40 INR, PTT INR 1.28 (0.83-1.09) H 05/17/19 17:00 Laboratory Tests 05/17/19 05/17/19 05/18/19 17:00 17:35 06:18 WBC Hgb Plt Count Sodium Potassium Creatinine Troponin I < 0.02 < 0.02 < 0.02 05/19/19 05/19/19 06:40 06:40 WBC 7.6 Hgb 10.1 L Plt Count 552 H Sodium 138 Potassium 4.4 Creatinine 0.7 Troponin I - ....Imaging EKG: Other (NSR w/ frequent APCs) Assessment/Plan TSH nl Assessment/Plan IMP: 1. New onset AF w/ RVR now converted to NSR 2. Chronic HTN 3. Suspected COPD 4. RUL Mass, likely malignant 5. Dizziness, chest pain likely all secondary to AF w/ RVR: CTA negative for PE REC: 1. Tele 2. Continue Cardizem, worked well for rate control and now has converted to NSR. Will decrease Losartan as BP is running low-normal. 3. Echo for EF assessment; Stress MPI in AM 4. [id number] score= 4, merits AC. Continue Eliquis. 5. Further plans re work up of lung mass as per PMD and Pulmonary.
--- NOTE | 2019-05-19 10:26 | PN ---
Progress Note (short form) - Note Progress Note: PULMONARY Denies shortness of breath. Chest heaviness resolved. Vital Signs Period Temp Pulse Resp BP Sys/Cl[place] Pulse Ox Last 24 Hr 97.8 F-98.9 F 67-85 16-18 104-122/50-80 96-96 Gen: NAD at rest Heart: RRR Lung: decreased breath sounds at the bases Abd: soft, nontender Ext: no edema CBC, BMP 05/19/19 06:40 05/19/19 06:40 Active Medications Acetaminophen (Tylenol -) 650 mg PO Q6H PRN PRN Reason: PAIN LEVEL 1-5 Apixaban (Eliquis -) 5 mg PO BID [facility] Last Admin: 05/19/19 09:48 Dose: 5 mg Aspirin (Ecotrin -) 81 mg PO DAILY [facility] Last Admin: 05/19/19 09:48 Dose: 81 mg Atorvastatin Calcium (Lipitor -) 40 mg PO HS [facility] Last Admin: 05/18/19 22:50 Dose: 40 mg Diltiazem HCl (Cardizem Cd -) 120 mg PO DAILY [facility] Last Admin: 05/19/19 09:48 Dose: 120 mg Lorazepam (Ativan -) 0.5 mg PO HS PRN PRN Reason: INSOMNIA Polyethylene Glycol (Miralax (For Daily Use) -) 17 gm PO DAILY [facility] Last Admin: 05/19/19 09:50 Dose: 17 gm A/P New Onset Atrial Fibrillation RUL Mass likely malignant HTN - rate control - on anticoagulation - will need biopsy via IR vs bronchoscopy but will need to be off ASA and anticoagulation - if cardiac intervention planned, would pursue biopsy prior - outpt PET, PFTs Problem List - Problems (1) New onset atrial fibrillation Code(s): I48.91 - UNSPECIFIED ATRIAL FIBRILLATION (2) Lung mass Code(s): R91.8 - OTHER NONSPECIFIC ABNORMAL FINDING OF LUNG FIELD
--- NOTE | 2019-05-19 14:50 | PN ---
Progress Note (short form) - Note Progress Note: patient seen and examined in room denies CP or lightheadedness however pulse irregular Vital Signs Period Temp Pulse Resp BP Sys/Clayton Pulse Ox Last 24 Hr 97.8 F-98.9 F 67-85 16-18 104-122/50-80 96-96 neck supple heart S1/S2 irregular lungs decreased BS no wheezing / rhonchi abd soft non tender ext no edema + clubbing CBC, BMP 05/19/19 06:40 05/19/19 06:40 TSH 1.05 EKG X2 sinus rhythm with APC EKG 1st - A fib with RVR CTA negative for PE Active Medications Acetaminophen (Tylenol -) 650 mg PO Q6H PRN PRN Reason: PAIN LEVEL 1-5 Apixaban (Eliquis -) 5 mg PO BID [facility] Last Admin: 05/19/19 09:48 Dose: 5 mg Aspirin (Ecotrin -) 81 mg PO DAILY [facility] Last Admin: 05/19/19 09:48 Dose: 81 mg Atorvastatin Calcium (Lipitor -) 40 mg PO HS [facility] Last Admin: 05/18/19 22:50 Dose: 40 mg Diltiazem HCl (Cardizem Cd -) 120 mg PO DAILY [facility] Last Admin: 05/19/19 09:48 Dose: 120 mg Lorazepam (Ativan -) 0.5 mg PO HS PRN PRN Reason: INSOMNIA Polyethylene Glycol (Miralax (For Daily Use) -) 17 gm PO DAILY [facility] Last Admin: 05/19/19 09:50 Dose: 17 gm The patient is a 78 year old female, with a significant PMH of HTN and a recently diagnosed right lung mass (diagnosed 04/12/19, biopsy has not been done yet) who presents with new onset Afib, chest pain, and shortness of breath. Patient states her symptoms have been intermittent for over a month with feeling of near syncope which resolves spontaneously -- she was ssen at [place] ED and Cardiac w/u negative, was followed up at office asymptomatic ( EKG at that time NSR) -- symptoms have worsened 2 days prior to ED visit prompting her visit. At ED was found to be in a fib with RVR ( no prior hx of a fib) # New onst a fib - probable cause of lightheadedness and additional sx now converted to NSR - sx have resolved will continue with CCB for rate control and htn taper or D/C losartan depending on BP will need a/c skilled nursing - but will hold once bx date confirmed Need to discuss with pulmonary plans for BX as should proceed as soon as stable # Lung mass Needs BX to be scheduled via Pulm by IR will need to hold A/c # COPD has not used inhalers in the past former smoker - quit 5 yrs ago but has been using e-cig for last few years Problem List - Problems (1) COPD (chronic obstructive pulmonary disease) Code(s): J44.9 - CHRONIC OBSTRUCTIVE PULMONARY DISEASE, UNSPECIFIED (2) Chest pain Code(s): R07.9 - CHEST PAIN, UNSPECIFIED (3) New onset atrial fibrillation Code(s): I48.91 - UNSPECIFIED ATRIAL FIBRILLATION (4) Lightheaded Code(s): R42 - DIZZINESS AND GIDDINESS (5) Lung mass Code(s): R91.8 - OTHER NONSPECIFIC ABNORMAL FINDING OF LUNG FIELD
[2019-05-19] MEDS: ATORVASTATIN CA 40 MG TABLET (FP) PO SCH (21:40)
[2019-05-20 06:19] LABS: BLOOD UREA NITROGEN 10.7 mg/dL (7-18); CALCIUM 9.4 mg/dL (8.5-10.1); CREATININE 0.7 mg/dL (0.55-1.3); POTASSIUM 4.5 mmol/L (3.5-5.1)
[2019-05-20 06:38] LABS: BASO % 0.6 % (0-2.0); EOS % 4.1 % (0-4.5); HEMATOCRIT 31.6 % (32.4-45.2); HEMOGLOBIN 10.4 GM/dL (10.7-15.3); LYMPH % 17.7 % (8-40); MCHC 32.8 g/dl (32.0-36.0); MEAN CELL VOLUME 76.2 fl (80-96); MEAN PLT VOLUME 7.1 fl (7.5-11.1); MONO % 7.6 % (3.8-10.2); PLATELET COUNT 572 K/MM3 (134-434); RBC 4.15 M/mm3 (3.60-5.2); RDW 15.8 % (11.6-15.6); WHITE BLOOD COUNT 7.4 K/mm3 (4.0-10.0)
[2019-05-20] MEDS ORDERED: REGADENOSON 0.4 MG/5 ML PRE-FILLED SYRINGE IVPUSH ONE ×2 (09:17→10:00)
[2019-05-20] MEDS ORDERED: PT OWN MED DRAWER 7, Y5N ONE (10:48)
--- NOTE | 2019-05-20 11:18 | EKG ---
Test Reason : Blood Pressure : / mmHG Vent. Rate : 083 BPM Atrial Rate : 083 BPM P-R Int : 146 ms QRS Dur : 076 ms QT Int : 342 ms P-R-T Axes : 031 -09 019 degrees QTc Int : 401 ms SINUS RHYTHM WITH PREMATURE ATRIAL COMPLEXES NONSPECIFIC ST ABNORMALITY ABNORMAL ECG WHEN COMPARED WITH ECG OF 17-MAY-2019 15:46, SINUS RHYTHM HAS REPLACED ATRIAL FIBRILLATION VENT. RATE HAS DECREASED BY 56 BPM Confirmed by DIONNE SLADE, ALLA ([id number]) on 05/20/2019 11:18:31 AM Referred By: Confirmed By:ALLA TRUONG MD
--- NOTE | 2019-05-20 11:34 | PN ---
Progress Note (short form) - Note Progress Note: patient for stress test this am Vital Signs Period Temp Pulse Resp BP Sys/Clayton Pulse Ox Last 24 Hr 97.8 F-98.9 F 67-85 16-18 104-122/50-80 96-96 neck supple heart S1/S2 irregular lungs decreased BS no wheezing / rhonchi abd soft non tender ext no edema + clubbing CBC, BMP 05/20/19 05:00 05/20/19 05:00 CBC, BMP 05/19/19 06:40 05/19/19 06:40 TSH 1.05 EKG X2 sinus rhythm with APC EKG 1st - A fib with RVR CTA negative for PE Active Medications Acetaminophen (Tylenol -) 650 mg PO Q6H PRN PRN Reason: PAIN LEVEL 1-5 Apixaban (Eliquis -) 5 mg PO BID [facility] Last Admin: 05/19/19 09:48 Dose: 5 mg Aspirin (Ecotrin -) 81 mg PO DAILY [facility] Last Admin: 05/19/19 09:48 Dose: 81 mg Atorvastatin Calcium (Lipitor -) 40 mg PO HS [facility] Last Admin: 05/18/19 22:50 Dose: 40 mg Diltiazem HCl (Cardizem Cd -) 120 mg PO DAILY [facility] Last Admin: 05/19/19 09:48 Dose: 120 mg Lorazepam (Ativan -) 0.5 mg PO HS PRN PRN Reason: INSOMNIA Polyethylene Glycol (Miralax (For Daily Use) -) 17 gm PO DAILY [facility] Last Admin: 05/19/19 09:50 Dose: 17 gm The patient is a 78 year old female, with a significant PMH of HTN and a recently diagnosed right lung mass (diagnosed 04/12/19, biopsy has not been done yet) who presents with new onset Afib, chest pain, and shortness of breath. Patient states her symptoms have been intermittent for over a month with feeling of near syncope which resolves spontaneously -- she was ssen at [place] [facility] and Cardiac w/u negative, was followed up at office asymptomatic ( EKG at that time NSR) -- symptoms have worsened 2 days prior to ED visit prompting her visit. At ED was found to be in a fib with RVR ( no prior hx of a fib) # New onst a fib - probable cause of lightheadedness and additional sx now converted to NSR - sx have resolved will continue with CCB for rate control and htn taper or D/C losartan depending on BP will need a/c fdc - but will hold once bx date confirmed Need to discuss with pulmonary plans for BX as should proceed as soon as stable # Lung mass Needs BX to be scheduled via Pulm by IR will need to hold A/c # COPD has not used inhalers in the past former smoker - quit 5 yrs ago but has been using e-cig for last few years Problem List - Problems (1) COPD (chronic obstructive pulmonary disease) Code(s): J44.9 - CHRONIC OBSTRUCTIVE PULMONARY DISEASE, UNSPECIFIED (2) Chest pain Code(s): R07.9 - CHEST PAIN, UNSPECIFIED (3) New onset atrial fibrillation Code(s): I48.91 - UNSPECIFIED ATRIAL FIBRILLATION (4) Lightheaded Code(s): R42 - DIZZINESS AND GIDDINESS (5) Lung mass Code(s): R91.8 - OTHER NONSPECIFIC ABNORMAL FINDING OF LUNG FIELD
--- NOTE | 2019-05-20 11:36 | PN ---
Progress Note, Physician History of Present Illness: pulmonary alert,comfortable,-c/o sob - Current Medication List Current Medications: Active Medications Acetaminophen (Tylenol -) 650 mg PO Q6H PRN PRN Reason: PAIN LEVEL 1-5 Apixaban (Eliquis -) 5 mg PO BID [facility] Last Admin: 05/19/19 21:40 Dose: 5 mg Aspirin (Ecotrin -) 81 mg PO DAILY [facility] Last Admin: 05/19/19 09:48 Dose: 81 mg Atorvastatin Calcium (Lipitor -) 40 mg PO HS [facility] Last Admin: 05/19/19 21:40 Dose: 40 mg Diltiazem HCl (Cardizem Cd -) 120 mg PO DAILY [facility] Last Admin: 05/19/19 09:48 Dose: 120 mg Lorazepam (Ativan -) 0.5 mg PO HS PRN PRN Reason: INSOMNIA Last Admin: 05/19/19 21:41 Dose: 0.5 mg Polyethylene Glycol (Miralax (For Daily Use) -) 17 gm PO DAILY [facility] Last Admin: 05/19/19 09:50 Dose: 17 gm - Objective Vital Signs: Vital Signs Temperature 98.1 F 05/20/19 05:39 Pulse Rate 68 05/20/19 05:39 Respiratory Rate 18 05/20/19 05:39 Blood Pressure 111/51 L 05/20/19 05:39 O2 Sat by Pulse Oximetry (%) 98 05/19/19 21:00 Constitutional: Yes: Well Nourished, Calm Eyes: Yes: WNL HENT: Yes: WNL Neck: Yes: WNL Cardiovascular: Yes: Pulse Irregular, S1 Respiratory: Yes: CTA Bilaterally Gastrointestinal: Yes: Normal Bowel Sounds, Soft Extremities: Yes: WNL Edema: No Labs: CBC, BMP 05/20/19 05:00 05/20/19 05:00 INR, PTT INR 1.28 (0.83-1.09) H 05/17/19 17:00 Assessment/Plan A/P New Onset Atrial Fibrillation RUL Mass likely malignant HTN - rate control - anticoagulation - will need biopsy via IR vs bronchoscopy but will need to be off ASA and anticoagulation - if cardiac intervention planned, would pursue biopsy prior - outpt PET, PFTs Problem List - Problems (1) New onset atrial fibrillation Code(s): I48.91 - UNSPECIFIED ATRIAL FIBRILLATION (2) Lung mass Code(s): R91.8 - OTHER NONSPECIFIC ABNORMAL FINDING OF LUNG FIELD
--- NOTE | 2019-05-20 11:49 | ECHO ---
Name: SHANNEN BAER Exam:Adult Echocardiogram Study Date: 05/20/2019 07:27 AM Age: 78 yrs Reason For Study: new onset af Height: 64 in Weight: 155 lb BSA: 1.8 m2 MMode/2D Measurements & Calculations RVDd: 2.4 cm Ao root diam: 3.5 cm IVSd: 0.91 cm LA dimension: 3.7 cm LVIDd: 5.5 cm ACS: 1.7 cm LVIDs: 3.9 cm LVPWd: 0.95 cm IVSs: 1.1 cm LVPWs: 1.2 cm EDV(Teich): 149.2 ml ESV(Teich): 65.9 ml Doppler Measurements & Calculations MV E max bartolo: 58.0 cm/sec Ao V2 max: 164.9 cm/sec MV A max bartolo: 74.5 cm/sec Ao max P.9 mmHg MV E/A: 0.78 Ao V2 mean: 121.1 cm/sec Ao mean P.4 mmHg Ao V2 VTI: 34.6 cm TR max bartolo: 232.8 cm/sec Med Peak E' Bartolo: 4.8 cm/sec TR max P.7 mmHg Med E/e': 12.0 Lat Peak E' Bartolo: 7.7 cm/sec Lat E/e': 7.6 Procedure A complete two-dimensional transthoracic echocardiogram was performed (2D, M-mode, Doppler and color flow Doppler). Left Ventricle The left ventricle is normal in size. Left ventricular systolic function is normal. Ejection Fraction = 55- 60%. Grade I diastolic dysfunction, (abnormal relaxation pattern). Ratio E/E'= 12. No regional wall m otion abnormalities noted. Right Ventricle The right ventricle is normal size. The right ventricular systolic function is normal. Atria The left atrial size is normal. Right atrial size is normal. Mitral Valve There is mild mitral annular calcification. There is mild mitral regurgitation. Tricuspid Valve The tricuspid valve is normal in structure and function. There is mild tricuspid regurgitation. Right ventricular systolic pressure is normal. Aortic Valve There is mild aortic sclerosis.;. Trace to mild aortic regurgitation. Pulmonic Valve The pulmonic valve is not well visualized. Great Vessels The aortic root is normal size. Pericardium/Pleura There is no pericardial effusion. Interpretation Summary The left ventricle is normal in size. Left ventricular systolic function is normal. No regional wall motion abnormalities noted. Ejection Fraction = 55-60%. Grade I diastolic dysfunction, (abnormal relaxation pattern). Ratio E/E'= 12 The right ventricular systolic function is normal. The left atrial size is normal. Right atrial size is normal. There is mild mitral annular calcification. There is mild mitral regurgitation. There is mild tricuspid regurgitation. Right ventricular systolic pressure is normal. There is mild aortic sclerosis.; Trace to mild aortic regurgitation. There is no pericardial effusion. Previous study is not available for comparison Aubrey Aguila MD 05/20/2019 11:48 AM
[2019-05-20] MEDS: APIXABAN 5 MG TABLET PO SCH ×2 (12:20→21:55)
[2019-05-20] MEDS: ASPIRIN COATED 81 MG TABLET.EC PO SCH (12:20)
[2019-05-20] MEDS: POLYETHYLENE GLYCOL 3350 119 GM BTL PO SCH (12:22)
--- NOTE | 2019-05-20 16:20 | PN ---
Progress Note (short form) - Note Progress Note: no chest pain, palps, dizziness tele: sinus with episode of tachycardia to 180s after arriving from stress test , per patient was choking on food at the time Current Medications Acetaminophen (Tylenol -) 650 mg PO Q6H PRN PRN Reason: PAIN LEVEL 1-5 Apixaban (Eliquis -) 5 mg PO BID [facility] Last Admin: 05/20/19 12:20 Dose: 5 mg Aspirin (Ecotrin -) 81 mg PO DAILY [facility] Last Admin: 05/20/19 12:20 Dose: 81 mg Atorvastatin Calcium (Lipitor -) 40 mg PO HS [facility] Last Admin: 05/19/19 21:40 Dose: 40 mg Diltiazem HCl (Cardizem Cd -) 120 mg PO DAILY [facility] Last Admin: 05/20/19 12:20 Dose: 120 mg Lorazepam (Ativan -) 0.5 mg PO HS PRN PRN Reason: INSOMNIA Last Admin: 05/19/19 21:41 Dose: 0.5 mg Polyethylene Glycol (Miralax (For Daily Use) -) 17 gm PO DAILY [facility] Last Admin: 05/20/19 12:22 Dose: 17 gm Vital Signs Period Temp Pulse Resp BP Sys/Clayton Pulse Ox Last 24 Hr 98.0 F-98.2 F 68-87 15-20 95-135/43-69 93-98 Constitutional: Yes: No Distress Eyes: Yes: Conjunctiva Clear Cardiovascular: Yes: Pulse Irregular Respiratory: Yes: CTA Bilaterally Gastrointestinal: Yes: Soft Edema: No Peripheral Pulses WNL: Yes Neurological: Yes: Alert, Oriented no jaundice, diaphoresis not agitated EKG: Other (NSR w/ frequent APCs) Assessment/Plan TSH nl Assessment/Plan IMP: 1. New onset AF w/ RVR now converted to NSR 2. Chronic HTN 3. Suspected COPD 4. RUL Mass, likely malignant 5. Dizziness, chest pain likely all secondary to AF w/ RVR: CTA negative for PE REC: 1. Tele 2. Continue Cardizem, remains in sinus. cont losartan - dose was decreased for low BPs 3. LV function normal on echo, mibi shows no ischemia. No further cardiac testing. 4. [id number] score= 4, merits AC. Continue Eliquis. 5. Further plans re work up of lung mass as per PMD and Pulmonary, may hold eliquis prior to lung biopsy.
[2019-05-20] MEDS: ATORVASTATIN CA 40 MG TABLET (FP) PO SCH (21:55)
[2019-05-21] MEDS: APIXABAN 5 MG TABLET PO SCH (09:23)
[2019-05-21] MEDS: POLYETHYLENE GLYCOL 3350 119 GM BTL PO SCH (09:23)
[2019-05-21] MEDS: ASPIRIN COATED 81 MG TABLET.EC PO SCH (09:23)
--- NOTE | 2019-05-21 10:11 | DS ---
Physical Examination Vital Signs: Vital Signs Temperature 98.1 F 05/21/19 06:00 Pulse Rate 69 05/21/19 06:00 Respiratory Rate 16 05/21/19 06:00 Blood Pressure 124/44 L 05/21/19 06:00 O2 Sat by Pulse Oximetry (%) 95 05/20/19 21:00 Findings/Remarks: The patient is a 78 year old female, with a significant PMH of HTN and a recently diagnosed right lung mass (diagnosed 04/12/19, biopsy has not been done yet) who presents with new onset Afib, chest pain, and shortness of breath. Patient states her symptoms have been intermittent for over a month with feeling of near syncope which resolves spontaneously -- she was seen at [place] ED and Cardiac w/u negative, was followed up at office asymptomatic ( EKG at that time NSR) -- symptoms have worsened 2 days prior to ED visit prompting her visit. 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 will hold once bx date confirmed Need to discuss with pulmonary plans for BX as should proceed as soon as stable # Lung mass Needs BX to be scheduled via Pulm by IR will need to hold A/c 2 days prior to procedure # COPD has not used inhalers in the past former smoker - quit 5 yrs ago but has been using e-cig for last few years Constitutional: Yes: Well Nourished, No Distress, Calm Eyes: Yes: WNL, Conjunctiva Clear HENT: Yes: WNL, Atraumatic, Normocephalic Neck: Yes: Supple, Trachea Midline Cardiovascular: Yes: Regular Rate and Rhythm, Pulse Irregular Respiratory: Yes: Regular, CTA Bilaterally, Diminished. No: Rhonchi, SOB, Wheezes Gastrointestinal: Yes: Normal Bowel Sounds, Soft ...Rectal Exam: Yes: Deferred Renal/: Yes: WNL Breast(s): Yes: WNL Musculoskeletal: Yes: WNL Extremities: Yes: WNL Edema: No Peripheral Pulses WNL: Yes Integumentary: Yes: WNL Neurological: Yes: Alert, Oriented ...Motor Strength: WNL Psychiatric: Yes: WNL, Alert, Oriented Labs: CBC, BMP 05/20/19 05:00 05/20/19 05:00 Discharge Summary Reason For Visit: LUNG MASS,NEW ONSET ATRIAL FIBRILLATION,CHEST PAIN Current Active Problems COPD (chronic obstructive pulmonary disease) (Acute) Chest pain (Acute) New onset atrial fibrillation (Acute) Condition: Stable - Instructions Disposition: HOME - Home Medications Comprehensive Discharge Medication List: Ambulatory Orders Cardizem CD 120 q daY ELIQUIS 5 mg BID atorvastatin 40 mg q day
--- NOTE | 2019-05-21 10:33 | PN ---
Progress Note (short form) - Note Progress Note: no chest pain, palps, dizziness, dyspnea tele: sinus Current Medications Acetaminophen (Tylenol -) 650 mg PO Q6H PRN PRN Reason: PAIN LEVEL 1-5 Apixaban (Eliquis -) 5 mg PO BID [facility] Last Admin: 05/21/19 09:23 Dose: 5 mg Aspirin (Ecotrin -) 81 mg PO DAILY [facility] Last Admin: 05/21/19 09:23 Dose: 81 mg Atorvastatin Calcium (Lipitor -) 40 mg PO HS [facility] Last Admin: 05/20/19 21:55 Dose: 40 mg Diltiazem HCl (Cardizem Cd -) 120 mg PO DAILY [facility] Last Admin: 05/21/19 09:23 Dose: 120 mg Lorazepam (Ativan -) 0.5 mg PO HS PRN PRN Reason: INSOMNIA Last Admin: 05/19/19 21:41 Dose: 0.5 mg Polyethylene Glycol (Miralax (For Daily Use) -) 17 gm PO DAILY [facility] Last Admin: 05/21/19 09:23 Dose: 17 gm Vital Signs Period Temp Pulse Resp BP Sys/Clayton Pulse Ox Last 24 Hr 98.1 F-98.2 F 68-85 16-20 102-135/44-63 95 Constitutional: Yes: No Distress Eyes: Yes: Conjunctiva Clear Cardiovascular: Yes: Pulse Irregular Respiratory: Yes: CTA Bilaterally Gastrointestinal: Yes: Soft Edema: No Peripheral Pulses WNL: Yes Neurological: Yes: Alert, Oriented no jaundice, diaphoresis not agitated EKG: Other (NSR w/ frequent APCs) Assessment/Plan TSH nl Assessment/Plan IMP: 1. New onset AF w/ RVR now converted to NSR 2. Chronic HTN 3. Suspected COPD 4. RUL Mass, likely malignant 5. Dizziness, chest pain likely all secondary to AF w/ RVR: CTA negative for PE REC: 1. Tele - has been in sinus, rate stable 2. Continue Cardizem, losartan - dose was decreased for low BPs 3. LV function normal on echo, mibi shows no ischemia. No further cardiac testing. 4. [id number] score= 4, merits AC. Continue Eliquis. 5. Further plans re work up of lung mass as per PMD and Pulmonary, may hold eliquis prior to lung biopsy. stable for dc from cardiac perspective
[2019-05-21 10:54] VITALS: BP 119/62; PULSE 72; TEMP 98.6
--- NOTE | 2019-05-21 11:27 | EKG ---
Test Reason : Blood Pressure : / mmHG Vent. Rate : 075 BPM Atrial Rate : 075 BPM P-R Int : 120 ms QRS Dur : 082 ms QT Int : 362 ms P-R-T Axes : 021 -10 022 degrees QTc Int : 404 ms SINUS RHYTHM WITH MARKED SINUS ARRHYTHMIA OTHERWISE NORMAL ECG Confirmed by Adan Woodard MD ([id number]) on 05/21/2019 11:26:57 AM Referred By: Prabhakar ZHANG Confirmed By:Adan Woodard MD
== END 2019-05-21 12:14 | disposition home or self-care (01) | DRG 309 ==
LOC: JER 15:45 → JERBED 17:08 → J4S 05-18 20:15
PROVIDERS: ADMIT Family Medicine; ATTEND Family Medicine
DX: I48.0 Paroxysmal atrial fibrillation (principal); C34.90 Malignant neoplasm of unspecified part of unspecified bronchus or lung; I10 Essential (primary) hypertension; J44.9 Chronic obstructive pulmonary disease, unspecified; R07.9 Chest pain, unspecified; R42 Dizziness and giddiness; R00.0 Tachycardia, unspecified; R91.8 Other nonspecific abnormal finding of lung field; F17.210 Nicotine dependence, cigarettes, uncomplicated
CPT/HCPCS: 36415; 71045-TC-FY; 71275-TC; 78452-TC; 80048; 80053; 80061; 82550; 83721; 83735; 84100; 84443; 84484; 85025; 85610; 93005; 93010; 93017; 93306-TC; 99285-25; A9502; J2785